=== PATIENT | female | born 1965 | race Caucasian/White ===

== ENCOUNTER 2017-07-21 01:44 | Inpatient (IN) | payer MEDICAID ==
[~2017-07-21] VITALS: Ht 154.9 cm; Wt 103.5 kg
[~2017-07-21 01:44] MED LIST: ADV500 IH; ALBU8.5H3 IH; AUD NEB
[2017-07-21] MEDS ORDERED: ALBUTEROL SULFATE 5 MG/ML 20 ML NEB SOLN [BULK] NEB ONE ×2 (02:00→02:30)
[2017-07-21] MEDS ORDERED: IPRATROPIUM BROMIDE 0.5 MG/2.5 ML NEB SOLUTION NEB ONE (02:00)
[2017-07-21] MEDS ORDERED: EPINEPHrine 1:1,000 [1 MG/ML] AMP SQ ONE (02:30)
[2017-07-21] MEDS ORDERED: DEXAMETHASONE SOD PHOS 4 MG/ML 5 ML VIAL IVP ONE (02:30)
[2017-07-21 02:55] LABS: BASOPHILS % (AUTO) 0.3 % (0.0-2.0); EOSINOPHILS % (AUTO) 7.5 % (1.0-6.0); HEMOGLOBIN 12.7 g/dL (12.0-16.0); LYMPHOCYTES # (AUTO) 3.9 K/uL (1.0-4.8); LYMPHOCYTES % (AUTO) 32.5 % (22.0-44.0); MEAN CORPUSCULAR HEMOGLOBIN 28.7 pg (26.0-34.0); MEAN CORPUSCULAR HGB CONC 33.5 G/dL (31.0-37.0); MEAN CORPUSCULAR VOLUME 86 fL (80-100); MONOCYTES # (AUTO) 0.9 K/uL (0.1-1.0); MONOCYTES % (AUTO) 7.4 % (2.0-9.0); NEUTROPHILS # (AUTO) 6.3 K/uL (1.8-7.7); NEUTROPHILS % (AUTO) 52.3 % (40.0-70.0); PLATELET COUNT (AUTO) 275 K/uL (150-450); RED BLOOD CELL COUNT(AUTO) 4.43 MIL/uL (4.00-5.20); RED CELL DISTRIBUTION WIDTH 13.8 % (11.5-14.5)
[2017-07-21 03:03] LABS: ANION GAP 10 mmol/L (8-16); CALCIUM, TOTAL 8.9 mg/dL (8.8-10.5); CARBON DIOXIDE 27 mmol/L (22-29); CHLORIDE 106 mmol/L (98-107); CREATININE 0.55 mg/dL (0.60-1.30); GLOMERULAR FILTR. RATE CALC > 60 mL/min (>60); GLUCOSE,RANDOM 109 mg/dL (70-110); POTASSIUM 3.5 mmol/L (3.5-5.1); SODIUM SERUM 143 mmol/L (136-145); UREA NITROGEN, BLOOD 8 mg/dL (7-18)
[2017-07-21 03:09] LABS: ALANINE AMINOTRANSFERASE 24 U/L (12-78); ALBUMIN 3.5 g/dL (3.4-5.0); ALKALINE PHOSPHATASE 100 U/L (46-116); ASPARTATE AMINOTRANSFERASE 16 U/L (15-37); BILIRUBIN,TOTAL 0.7 mg/dL (0.1-1.0); TOTAL PROTEIN, SERUM 6.8 g/dL (6.4-8.2)
[2017-07-21] MEDS ORDERED: ACETAMINOPHEN 500 MG TABLET PO ONE (03:30)
[2017-07-21] MEDS ORDERED: ACETAMINOPHEN 325 MG TABLET PO PRN (04:45)
[2017-07-21] MEDS ORDERED: ONDANSETRON HCL 4 MG/2 ML VIAL IVP PRN ×2 (04:45→06:45)
[2017-07-21] MEDS ORDERED: 0.9% SODIUM CHLORIDE 10 ML SYRINGE IVP PRN (04:45)
[2017-07-21 06:11] VITALS: BP 122/69
[2017-07-21] MEDS ORDERED: MAGNESIUM HYDROXIDE SUSPENSION 30 ML UDCUP PO PRN (06:45)
[2017-07-21] MEDS ORDERED: OxyCODONE HCL/ACETAMINOPHEN 5-325 MG TABLET PO PRN (06:45)
[2017-07-21] MEDS ORDERED: BISACODYL 10 MG RECTAL RECTAL SUPPOSITORY PR PRN (06:45)
[2017-07-21] MEDS ORDERED: GuaiFENesin/D-METHORPHAN/PHENYLEPH 5 ML LIQUID ORAL.SYG PO PRN (06:45)
[2017-07-21] MEDS ORDERED: ZOLPIDEM TARTRATE 5 MG TABLET PO PRN (06:45)
[2017-07-21] MEDS ORDERED: ALBUTEROL SULFATE 2.5 MG/0.5 ML NEB SOLUTION NEB SCH (07:00)
[2017-07-21] MEDS ORDERED: IPRATROPIUM BROMIDE 0.5 MG/2.5 ML NEB SOLUTION NEB SCH (07:00)
[2017-07-21 07:44] VITALS: BP 97/59
[2017-07-21] MEDS ORDERED: OXYGEN THERAPY IH SCH (08:00)
[2017-07-21] MEDS: PANTOPRAZOLE SODIUM 40 MG DR TABLET PO SCH (08:19)
[2017-07-21] MEDS: HEPARIN SODIUM,PORCINE 5,000 UNITS/ML VIAL SQ SCH ×2 (08:19→20:22)
[2017-07-21] MEDS ORDERED: FLUTICASONE/VILANTEROL 200-25 MCG/INH INHALER [14] IH SCH (09:00)
[2017-07-21 11:30] VITALS: BP 109/59
[2017-07-21] MEDS: MethylPREDNISolone SOD SUCC 125 MG/2 ML VIAL IVP SCH ×2 (13:07→17:55)
[2017-07-21] MEDS: ACETAMINOPHEN 325 MG TABLET PO PRN ×2 (13:13→20:22)
[2017-07-21] MEDS: IPRATROPIUM BROMIDE 0.5 MG/2.5 ML NEB SOLUTION NEB SCH ×3 (14:39→23:00)
[2017-07-21] MEDS: ALBUTEROL SULFATE 2.5 MG/0.5 ML NEB SOLUTION NEB SCH ×3 (14:39→23:00)
[2017-07-21] MEDS ORDERED: DEXTROSE 50%-WATER 25 GM/50 ML SYRINGE IVP PRN (14:45)
[2017-07-21 15:29] VITALS: BP 143/70
[2017-07-21 17:32] LABS: GLUCOMETER DEV NAME(LOC) 6N 1E; GLUCOSE,POINT OF CARE 138 MG/DL (70-110)
[2017-07-21 19:23] VITALS: BP 123/66
[2017-07-21] MEDS: INSULIN ASPART 100 UNITS/ML SQ PRN (20:22)
[2017-07-22] MEDS: MethylPREDNISolone SOD SUCC 125 MG/2 ML VIAL IVP SCH ×3 (00:09→15:50)
[2017-07-22] MEDS: ACETAMINOPHEN 325 MG TABLET PO PRN ×3 (00:10→17:45)
[2017-07-22 00:30] VITALS: BP 118/62
[2017-07-22] MEDS: IPRATROPIUM BROMIDE 0.5 MG/2.5 ML NEB SOLUTION NEB SCH ×3 (03:01→10:35)
[2017-07-22] MEDS: ALBUTEROL SULFATE 2.5 MG/0.5 ML NEB SOLUTION NEB SCH ×3 (03:01→10:35)
[2017-07-22 05:10] VITALS: BP 111/66
[2017-07-22 06:14] LABS: BASOPHILS % (AUTO) 0.2 % (0.0-2.0); EOSINOPHILS % (AUTO) 0 % (1.0-6.0); HEMATOCRIT 40.9 % (36-46); HEMOGLOBIN 13.7 g/dL (12.0-16.0); LYMPHOCYTES # (AUTO) 1.4 K/uL (1.0-4.8); LYMPHOCYTES % (AUTO) 7.5 % (22.0-44.0); MEAN CORPUSCULAR HEMOGLOBIN 29.1 pg (26.0-34.0); MEAN CORPUSCULAR HGB CONC 33.6 G/dL (31.0-37.0); MEAN CORPUSCULAR VOLUME 87 fL (80-100); MONOCYTES # (AUTO) 0.3 K/uL (0.1-1.0); MONOCYTES % (AUTO) 1.5 % (2.0-9.0); NEUTROPHILS # (AUTO) 16.4 K/uL (1.8-7.7); PLATELET COUNT (AUTO) 322 K/uL (150-450); RED BLOOD CELL COUNT(AUTO) 4.73 MIL/uL (4.00-5.20); RED CELL DISTRIBUTION WIDTH 13.9 % (11.5-14.5)
[2017-07-22] MEDS: INSULIN ASPART 100 UNITS/ML SQ PRN ×2 (06:14→20:48)
[2017-07-22 06:30] LABS: ALANINE AMINOTRANSFERASE 20 U/L (12-78); ALBUMIN 3.5 g/dL (3.4-5.0); ALKALINE PHOSPHATASE 103 U/L (46-116); ANION GAP 9 mmol/L (8-16); ASPARTATE AMINOTRANSFERASE 11 U/L (15-37); BILIRUBIN,TOTAL 0.4 mg/dL (0.1-1.0); CALCIUM, TOTAL 9.3 mg/dL (8.8-10.5); CARBON DIOXIDE 26 mmol/L (22-29); CHLORIDE 106 mmol/L (98-107); CREATININE 0.65 mg/dL (0.60-1.30); GLOMERULAR FILTR. RATE CALC > 60 mL/min (>60); GLUCOSE,RANDOM 168 mg/dL (70-110); PHOSPHORUS 3.5 mg/dL (2.5-4.9); SODIUM SERUM 141 mmol/L (136-145); TOTAL PROTEIN, SERUM 7.4 g/dL (6.4-8.2); UREA NITROGEN, BLOOD 10 mg/dL (7-18)
[2017-07-22] MEDS: BENZOCAINE/MENTHOL LOZENGE [8 LOZENGES/PACKET] PO PRN ×2 (06:32→17:45)
[2017-07-22 06:33] LABS: GLUCOMETER DEV NAME(LOC) 6N 2D; GLUCOSE,POINT OF CARE 257 MG/DL (70-110)
[2017-07-22 06:59] LABS: NEUTROPHILS % (AUTO) 90.8 % (40.0-70.0)
[2017-07-22 07:04] LABS: HEMOGLOBIN A1C 6.1 % (4.5-6.2)
[2017-07-22 08:07] LABS: GLUCOMETER DEV NAME(LOC) 6N 2D; GLUCOSE,POINT OF CARE 163 MG/DL (70-110)
[2017-07-22 08:12] VITALS: BP 101/43
[2017-07-22 08:24] VITALS: BP 126/68
[2017-07-22] MEDS: PANTOPRAZOLE SODIUM 40 MG DR TABLET PO SCH (08:26)
[2017-07-22] MEDS: HEPARIN SODIUM,PORCINE 5,000 UNITS/ML VIAL SQ SCH ×2 (08:27→20:39)
[2017-07-22 11:24] VITALS: BP 120/53
[2017-07-22 12:12] LABS: GLUCOMETER DEV NAME(LOC) 6N 2D; GLUCOSE,POINT OF CARE 150 MG/DL (70-110)
[2017-07-22 14:18] LABS: GLUCOMETER DEV NAME(LOC) 6N 1E; GLUCOSE,POINT OF CARE 163 MG/DL (70-110)
[2017-07-22 18:38] LABS: GLUCOMETER DEV NAME(LOC) 6N 2D; GLUCOSE,POINT OF CARE 108 MG/DL (70-110)
[2017-07-22] MEDS: IPRATROPIUM BROMIDE 0.5 MG/2.5 ML NEB SOLUTION NEB PRN (19:03)
[2017-07-22] MEDS: ALBUTEROL SULFATE 2.5 MG/0.5 ML NEB SOLUTION NEB PRN (19:03)
[2017-07-22 20:00] VITALS: BP 118/83
[2017-07-22 22:17] LABS: GLUCOMETER DEV NAME(LOC) 6N 1E; GLUCOSE,POINT OF CARE 186 MG/DL (70-110)
[2017-07-23] VITALS: BP 122/74
[2017-07-23] MEDS: MethylPREDNISolone SOD SUCC 125 MG/2 ML VIAL IVP SCH ×2 (00:37→07:49)
[2017-07-23] MEDS: BENZOCAINE/MENTHOL LOZENGE [8 LOZENGES/PACKET] PO PRN ×2 (00:45→07:50)
[2017-07-23 04:00] VITALS: BP 112/62
[2017-07-23] MEDS: IPRATROPIUM BROMIDE 0.5 MG/2.5 ML NEB SOLUTION NEB PRN ×2 (05:16→12:42)
[2017-07-23] MEDS: ALBUTEROL SULFATE 2.5 MG/0.5 ML NEB SOLUTION NEB PRN ×2 (05:16→12:42)
[2017-07-23] MEDS: INSULIN ASPART 100 UNITS/ML SQ PRN (06:36)
[2017-07-23] MEDS: ACETAMINOPHEN 325 MG TABLET PO PRN (07:51)
[2017-07-23] MEDS: PANTOPRAZOLE SODIUM 40 MG DR TABLET PO SCH (07:57)
[2017-07-23] MEDS: HEPARIN SODIUM,PORCINE 5,000 UNITS/ML VIAL SQ SCH (07:57)
[2017-07-23 08:08] VITALS: BP 122/78
[2017-07-23] MEDS ORDERED: PRED20 PO (10:02)
[2017-07-23] MEDS ORDERED: ALBU2.5V2 NEB (10:04)
[2017-07-23 11:07] LABS: GLUCOMETER DEV NAME(LOC) 6N 1E; GLUCOSE,POINT OF CARE 137 MG/DL (70-110)
[2017-07-23 11:32] LABS: GLUCOMETER DEV NAME(LOC) 6N 2D; GLUCOSE,POINT OF CARE 158 MG/DL (70-110)
[2017-07-23 12:28] VITALS: BP 116/70
== END 2017-07-23 13:15 | disposition home or self-care (01) | DRG 141 ==
LOC: EMS 01:45 → 6N 04:52
PROVIDERS: ADMIT Internal Medicine; ATTEND Internal Medicine
DX: J45.902 Unspecified asthma with status asthmaticus (principal); E44.0 Moderate protein-calorie malnutrition; Z68.41 Body mass index [BMI] 40.0-44.9, adult; E66.01 Morbid (severe) obesity due to excess calories; F41.9 Anxiety disorder, unspecified; G47.33 Obstructive sleep apnea (adult) (pediatric); Z79.899 Other long term (current) drug therapy; Z87.01 Personal history of pneumonia (recurrent); Z88.0 Allergy status to penicillin
CPT/HCPCS: 82962; 83036; 83735; 84100; 94640; 94644; 96374; 99285; J0171; J1100; J1644; J2930

== ENCOUNTER 2017-09-29 13:24 | Emergency (ER) | payer MEDICAID ==
[~2017-09-29] VITALS: Ht 154.9 cm; Wt 101.4 kg
[~2017-09-29 13:24] MED LIST changes: +ALBU2.5V2 NEB; +PRED20 PO
[2017-09-29] MEDS ORDERED: ALBUTEROL SULFATE 5 MG/ML 20 ML NEB SOLN [BULK] NEB ONE (13:45)
[2017-09-29] MEDS ORDERED: MethylPREDNISolone SOD SUCC 125 MG/2 ML VIAL IVP ONE (13:45)
[2017-09-29] MEDS ORDERED: IPRATROPIUM BROMIDE 0.5 MG/2.5 ML NEB SOLUTION NEB ONE (13:45)
[2017-09-29] MEDS ORDERED: 0.9% SODIUM CHLORIDE 5 ML NEB SOLUTION NEB ONE (13:54)
[2017-09-29 14:02] LABS: BASOPHILS % (AUTO) 0.9 % (0.0-2.0); EOSINOPHILS % (AUTO) 0.3 % (1.0-6.0); HEMATOCRIT 41.1 % (36-46); HEMOGLOBIN 14.3 g/dL (12.0-16.0); LYMPHOCYTES # (AUTO) 1.2 K/uL (1.0-4.8); LYMPHOCYTES % (AUTO) 12.1 % (22.0-44.0); MEAN CORPUSCULAR HEMOGLOBIN 29.7 pg (26.0-34.0); MEAN CORPUSCULAR HGB CONC 34.7 G/dL (31.0-37.0); MEAN CORPUSCULAR VOLUME 86 fL (80-100); MONOCYTES # (AUTO) 0.3 K/uL (0.1-1.0); MONOCYTES % (AUTO) 3.3 % (2.0-9.0); NEUTROPHILS # (AUTO) 8.2 K/uL (1.8-7.7); NEUTROPHILS % (AUTO) 83.4 % (40.0-70.0); PLATELET COUNT (AUTO) 341 K/uL (150-450); RED CELL DISTRIBUTION WIDTH 13.6 % (11.5-14.5)
[2017-09-29 14:21] LABS: ANION GAP 13 mmol/L (8-16); CALCIUM, TOTAL 8.9 mg/dL (8.8-10.5); CARBON DIOXIDE 23 mmol/L (22-29); CHLORIDE 104 mmol/L (98-107); GLOMERULAR FILTR. RATE CALC > 60 mL/min (>60); GLUCOSE,RANDOM 193 mg/dL (70-110); POTASSIUM 3.9 mmol/L (3.5-5.1); SODIUM SERUM 140 mmol/L (136-145); UREA NITROGEN, BLOOD 9 mg/dL (7-18)
[2017-09-29 14:22] LABS: ALANINE AMINOTRANSFERASE 30 U/L (12-78); ALBUMIN 3.9 g/dL (3.4-5.0); ALKALINE PHOSPHATASE 125 U/L (46-116); ASPARTATE AMINOTRANSFERASE 15 U/L (15-37); BILIRUBIN,TOTAL 0.5 mg/dL (0.1-1.0); TOTAL PROTEIN, SERUM 8.2 g/dL (6.4-8.2)
[2017-09-29 14:37] LABS: B-TYPE NATRIURETIC PEPTIDE 33 pg/mL (0-100)
[2017-09-29] MEDS: ONDANSETRON HCL 4 MG/2 ML VIAL IVP ONE ×2 (15:08→15:19)
[2017-09-29] MEDS ORDERED: SODIUM CHLORIDE 0.9% 1,000 ML IV ONE (15:15)
[2017-09-29] MEDS ORDERED: KETOROLAC TROMETHAMINE 30 MG/ML VIAL IVP ONE (15:15)
[2017-09-29] MEDS ORDERED: ACETAMINOPHEN 500 MG TABLET PO ONE (15:15)
[2017-09-29 18:13] LABS: GLUCOSE,POINT OF CARE 155 MG/DL (70-110)
[2017-09-29 18:44] VITALS: BP 139/60
== END 2017-09-29 19:20 | disposition home or self-care (01) ==
LOC: EMS 13:26
DX: J45.901 Unspecified asthma with (acute) exacerbation (principal); J81.1 Chronic pulmonary edema; Z88.0 Allergy status to penicillin
CPT/HCPCS: 71045; 80053; 82962; 83880; 84484; 85025; 87040; 93005; 94644; 96374; 99291; J1885; J2930; J7030; J7611; J2405

== ENCOUNTER 2018-01-22 09:56 | Emergency (ER) | payer MEDICAID ==
[~2018-01-22] VITALS: Ht 154.9 cm; Wt 90.9 kg
[2018-01-22] MEDS ORDERED: PredniSONE 20 MG TABLET PO ONE (10:30)
[2018-01-22] MEDS ORDERED: ALBUTEROL SULFATE 5 MG/ML 20 ML NEB SOLN [BULK] NEB ONE (10:30)
[2018-01-22] MEDS ORDERED: IPRATROPIUM BROMIDE 0.5 MG/2.5 ML NEB SOLUTION NEB ONE (10:30)
[2018-01-22] MEDS ORDERED: 0.9% SODIUM CHLORIDE 5 ML NEB SOLUTION NEB ONE (10:57)
[2018-01-22] MEDS ORDERED: ACETAMINOPHEN 500 MG TABLET PO ONE (11:45)
[2018-01-22] MEDS ORDERED: ALBUTEROL SULFATE HFA 90 MCG/PUFF 8 GM INHALER IH ONE (12:30)
[2018-01-22 12:55] VITALS: BP 114/75
== END 2018-01-22 12:57 | disposition home or self-care (01) ==
LOC: EMS 09:57
DX: J45.909 Unspecified asthma, uncomplicated (principal); Z79.899 Other long term (current) drug therapy; Z88.0 Allergy status to penicillin
CPT/HCPCS: 71045; 94644; 99285; J7512; J7611; J3535

== ENCOUNTER 2018-02-17 21:45 | Emergency (ER) | payer MEDICAID ==
[~2018-02-17] VITALS: Ht 154.9 cm; Wt 101.4 kg
[~2018-02-17 21:45] MED LIST changes: -PRED20 PO
[2018-02-17] MEDS ORDERED: ALBU8.5H8 IH (22:11)
[2018-02-17 22:49] VITALS: BP 127/70
== END 2018-02-17 22:50 | disposition home or self-care (01) ==
LOC: EMS 21:47
DX: L02.01 Cutaneous abscess of face (principal); J45.909 Unspecified asthma, uncomplicated; Z88.0 Allergy status to penicillin; Z79.899 Other long term (current) drug therapy
CPT/HCPCS: 99283

== ENCOUNTER 2019-01-13 11:38 | Emergency (ER) | payer MEDICAID ==
[~2019-01-13] VITALS: Ht 154.9 cm; Wt 102.3 kg
[~2019-01-13 11:38] MED LIST changes: -ADV500 IH; -ALBU2.5V2 NEB; -ALBU8.5H3 IH; +ALBU8.5H8 IH
[2019-01-13] MEDS ORDERED: LIDOCAINE 1% 10 ML VIAL INJ ONE (13:30)
[2019-01-13] MEDS ORDERED: POVIDONE-IODINE 10% 15 ML SOLUTION UD TP ONE (13:30)
[2019-01-13] MEDS ORDERED: HYDROCODONE/ACETAMINOPHEN 5-325 MG TABLET PO ONE (13:30)
[2019-01-13] MEDS ORDERED: ACETAMINOPHEN 500 MG TABLET ONE (14:45)
[2019-01-13] MEDS ORDERED: ACETAMINOPHEN 500 MG TABLET PO ONE (15:00)
[2019-01-13 15:01] VITALS: BP 141/93
== END 2019-01-13 15:22 | disposition home or self-care (01) ==
LOC: EMS 11:39
DX: L02.211 Cutaneous abscess of abdominal wall (principal); J45.909 Unspecified asthma, uncomplicated; Z88.0 Allergy status to penicillin
CPT/HCPCS: 10060; 99283; J3490

== ENCOUNTER 2019-01-15 10:40 | Emergency (ER) | payer MEDICAID ==
[~2019-01-15] VITALS: Ht 154.9 cm; Wt 100.0 kg
[2019-01-15 11:48] VITALS: BP 123/68
== END 2019-01-15 11:48 | disposition home or self-care (01) ==
LOC: EMS 10:42
DX: Z48.01 Encounter for change or removal of surgical wound dressing (principal); J45.909 Unspecified asthma, uncomplicated; Z79.899 Other long term (current) drug therapy; Z88.0 Allergy status to penicillin

== ENCOUNTER 2019-04-10 03:20 | Emergency (ER) | payer MEDICAID ==
[~2019-04-10] VITALS: Ht 154.9 cm; Wt 99.5 kg
[2019-04-10] MEDS ORDERED: ADV100 IH (03:23)
[2019-04-10] MEDS ORDERED: IPRATROPIUM BROMIDE 0.5 MG/2.5 ML NEB SOLUTION NEB ONE ×3 (03:30→04:15)
[2019-04-10] MEDS ORDERED: ALBUTEROL SULFATE 2.5 MG/0.5 ML NEB SOLUTION NEB ONE (03:30)
[2019-04-10] MEDS ORDERED: MethylPREDNISolone SOD SUCC 125 MG/2 ML VIAL IVP ONE (04:00)
[2019-04-10] MEDS ORDERED: ALBUTEROL SULFATE 5 MG/ML 20 ML NEB SOLN [BULK] NEB ONE ×2 (04:00→04:15)
[2019-04-10] MEDS ORDERED: MAGNESIUM SULFATE 2 GM/WATER 50 ML IV ONE (04:00)
[2019-04-10] MEDS ORDERED: 0.9% SODIUM CHLORIDE 15 ML NEB SOLUTION NEB ONE (04:17)
[2019-04-10 06:00] VITALS: BP 130/73
== END 2019-04-10 06:52 | disposition home or self-care (01) ==
LOC: EMS 03:23
DX: J45.901 Unspecified asthma with (acute) exacerbation (principal); Z79.899 Other long term (current) drug therapy; Z98.890 Other specified postprocedural states
CPT/HCPCS: 71046; 94640; 96365; 96366; 96375; 99284; J2930; J3475; 94060; 94644

== ENCOUNTER 2019-05-06 13:57 | Emergency (ER) | payer MEDICAID ==
[~2019-05-06] VITALS: Ht 162.6 cm; Wt 109.1 kg
[~2019-05-06 13:57] MED LIST changes: +ADV100 IH
[2019-05-06] MEDS ORDERED: ALBUTEROL SULFATE 2.5 MG/0.5 ML NEB SOLUTION NEB ONE (14:15)
[2019-05-06] MEDS ORDERED: IPRATROPIUM BROMIDE 0.5 MG/2.5 ML NEB SOLUTION NEB ONE ×2 (14:15→16:00)
[2019-05-06 14:27] LABS: GLUCOSE,POINT OF CARE 88 MG/DL (70-110)
[2019-05-06] MEDS ORDERED: PredniSONE 20 MG TABLET PO ONE (16:00)
[2019-05-06] MEDS ORDERED: ALBUTEROL SULFATE 5 MG/ML 20 ML NEB SOLN [BULK] NEB ONE (16:00)
[2019-05-06 18:43] VITALS: BP 142/74
== END 2019-05-06 18:49 | disposition home or self-care (01) ==
LOC: EMS 13:59
DX: J45.909 Unspecified asthma, uncomplicated (principal); Z79.899 Other long term (current) drug therapy; Z88.0 Allergy status to penicillin
CPT/HCPCS: 71046; 82962; 94640; 99284; J7512; 94060

== ENCOUNTER 2020-12-02 17:58 | Emergency (ER) | payer MEDICAID ==
[~2020-12-02] VITALS: Ht 154.9 cm; Wt 81.8 kg
[~2020-12-02 17:58] MED LIST changes: -ADV100 IH; +FLUT1DIS4 IH
[2020-12-02] MEDS ORDERED: IBUPROFEN 600 MG TABLET PO ONE (19:30)
[2020-12-02 21:23] VITALS: BP 138/72
== END 2020-12-02 21:34 | disposition home or self-care (01) ==
LOC: EMS 17:58
DX: M75.31 Calcific tendinitis of right shoulder (principal); J45.909 Unspecified asthma, uncomplicated
CPT/HCPCS: 99283

== ENCOUNTER 2021-07-02 08:12 | Inpatient (IN) | payer MEDICAID ==
[~2021-07-02] VITALS: Ht 154.9 cm; Wt 101.8 kg
[2021-07-02] MEDS ORDERED: ALBUTEROL SULFATE 5 MG/ML 20 ML NEB SOLN [BULK] NEB ONE (08:30)
[2021-07-02] MEDS ORDERED: PredniSONE 20 MG TABLET PO ONE (08:30)
[2021-07-02] MEDS ORDERED: IPRATROPIUM BROMIDE 0.5 MG/2.5 ML NEB SOLUTION NEB ONE (08:30)
[2021-07-02 08:35] LABS: COVID AG,FIA SOURCE NASOPHARYNGEAL
[2021-07-02 10:36] LABS: BASOPHILS % (AUTO) 0.2 % (0.0-2.0); EOSINOPHILS % (AUTO) 1.3 % (1.0-6.0); HEMATOCRIT 39.6 % (36-46); HEMOGLOBIN 13.6 g/dL (12.0-16.0); LYMPHOCYTES % (AUTO) 10.1 % (22.0-44.0); MEAN CORPUSCULAR HEMOGLOBIN 29.4 pg (26.0-34.0); MEAN CORPUSCULAR HGB CONC 34.3 G/dL (31.0-37.0); MEAN CORPUSCULAR VOLUME 86 fL (80-100); MONOCYTES # (AUTO) 0.4 K/uL (0.1-1.0); MONOCYTES % (AUTO) 4.1 % (2.0-9.0); NEUTROPHILS # (AUTO) 8.3 K/uL (1.8-7.7); NEUTROPHILS % (AUTO) 84.3 % (40.0-70.0); PLATELET COUNT (AUTO) 289 K/uL (150-450); RED BLOOD CELL COUNT(AUTO) 4.62 MIL/uL (4.00-5.20); RED CELL DISTRIBUTION WIDTH 13.7 % (11.5-14.5)
[2021-07-02 10:44] LABS: ANION GAP 15 mmol/L (8-16); CALCIUM, TOTAL 8.9 mg/dL (8.8-10.5); CARBON DIOXIDE 23 mmol/L (22-29); CHLORIDE 102 mmol/L (98-107); CREATININE 0.83 mg/dL (0.60-1.30); GLOMERULAR FILTR. RATE CALC > 60 mL/min (>60); GLUCOSE,RANDOM 182 mg/dL (70-110); SODIUM SERUM 140 mmol/L (136-145); UREA NITROGEN, BLOOD 7 mg/dL (7-18)
[2021-07-02] MEDS ORDERED: ACETAMINOPHEN 325 MG TABLET PO PRN (10:45)
[2021-07-02] MEDS ORDERED: ONDANSETRON HCL 4 MG/2 ML VIAL IVP PRN ×2 (10:45→13:45)
[2021-07-02 10:46] LABS: POTASSIUM 2.9 mmol/L (3.5-5.1)
[2021-07-02] MEDS ORDERED: ALBUTEROL SULFATE 2.5 MG/0.5 ML NEB SOLUTION NEB SCH (11:00)
[2021-07-02] MEDS ORDERED: IPRATROPIUM BROMIDE 0.5 MG/2.5 ML NEB SOLUTION NEB SCH (11:00)
[2021-07-02] MEDS ORDERED: POTASSIUM CHLORIDE 20 MEQ ER TABLET PO ONE (11:00)
[2021-07-02 12:16] VITALS: BP 116/64
[2021-07-02] MEDS ORDERED: IPRATROPIUM BROMIDE 0.5 MG/2.5 ML NEB SOLUTION NEB PRN (13:45)
[2021-07-02] MEDS ORDERED: HYDROCODONE/ACETAMINOPHEN 5-325 MG TABLET PO PRN (13:45)
[2021-07-02] MEDS ORDERED: ALBUTEROL SULFATE 2.5 MG/0.5 ML NEB SOLUTION NEB PRN (13:45)
[2021-07-02] MEDS ORDERED: POTASSIUM CHL 10 MEQ/WATER 50 ML IV PRN (13:45)
[2021-07-02] MEDS ORDERED: BISACODYL 10 MG RECTAL RECTAL SUPPOSITORY PR PRN (13:45)
[2021-07-02] MEDS ORDERED: POTASSIUM CHLORIDE 20 MEQ ER TABLET PO PRN (13:45)
[2021-07-02] MEDS ORDERED: MORPHINE SULFATE 2 MG/ML SYRINGE IVP PRN (13:45)
[2021-07-02] MEDS ORDERED: ZOLPIDEM TARTRATE 5 MG TABLET PO PRN (13:45)
[2021-07-02] MEDS ORDERED: MAGNESIUM HYDROXIDE SUSPENSION 30 ML UDCUP PO PRN (13:45)
[2021-07-02] MEDS: ALBUTEROL SULFATE 2.5 MG/0.5 ML NEB SOLUTION NEB SCH ×2 (14:31→19:17)
[2021-07-02] MEDS: IPRATROPIUM BROMIDE 0.5 MG/2.5 ML NEB SOLUTION NEB SCH ×2 (14:31→19:17)
[2021-07-02 14:51] LABS: GLUCOMETER DEV NAME(LOC) 6N.2; GLUCOSE,POINT OF CARE 183 MG/DL (70-110)
[2021-07-02] MEDS ORDERED: INFLUENZA VIRUS VACCINE QVS 2021-22 (6MO+)/PF 60 MCG/0.5 ML SYRINGE IM. ONE (15:00)
[2021-07-02] MEDS: ACETAMINOPHEN 325 MG TABLET PO PRN ×2 (15:39→22:32)
[2021-07-02] MEDS: BENZONATATE 100 MG CAPSULE PO SCH ×2 (15:39→21:00)
[2021-07-02] MEDS: HEPARIN SODIUM,PORCINE 5,000 UNITS/ML VIAL SQ SCH ×2 (15:40→21:49)
[2021-07-02 16:12] VITALS: BP 111/78
[2021-07-02 17:22] LABS: GLUCOMETER DEV NAME(LOC) 4E.2; GLUCOSE,POINT OF CARE 182 MG/DL (70-110)
[2021-07-02] MEDS: MethylPREDNISolone SOD SUCC 125 MG/2 ML VIAL IVP SCH (18:00)
[2021-07-02 20:06] VITALS: BP 136/72
[2021-07-02] MEDS: DOCUSATE SODIUM 100 MG CAPSULE PO SCH (21:38)
[2021-07-02] MEDS: GuaiFENesin SR 600 MG ER TABLET PO SCH (21:38)
[2021-07-02] MEDS: FLUTICASONE/VILANTEROL 200-25 MCG/INH INHALER [14] IH SCH (21:48)
[2021-07-03] MEDS: MethylPREDNISolone SOD SUCC 125 MG/2 ML VIAL IVP SCH ×4 (00:22→17:51)
[2021-07-03] MEDS: IPRATROPIUM BROMIDE 0.5 MG/2.5 ML NEB SOLUTION NEB SCH ×4 (02:52→20:00)
[2021-07-03] MEDS: ALBUTEROL SULFATE 2.5 MG/0.5 ML NEB SOLUTION NEB SCH ×4 (02:53→20:00)
[2021-07-03] MEDS: ACETAMINOPHEN 325 MG TABLET PO PRN (06:26)
[2021-07-03 06:50] LABS: BASOPHILS % (AUTO) 0.3 % (0.0-2.0); EOSINOPHILS % (AUTO) 0.1 % (1.0-6.0); HEMATOCRIT 38.2 % (36-46); HEMOGLOBIN 13.5 g/dL (12.0-16.0); LYMPHOCYTES # (AUTO) 1.1 K/uL (1.0-4.8); LYMPHOCYTES % (AUTO) 8.1 % (22.0-44.0); MEAN CORPUSCULAR HEMOGLOBIN 29.9 pg (26.0-34.0); MEAN CORPUSCULAR HGB CONC 35.3 G/dL (31.0-37.0); MEAN CORPUSCULAR VOLUME 85 fL (80-100); MONOCYTES # (AUTO) 0.1 K/uL (0.1-1.0); MONOCYTES % (AUTO) 0.6 % (2.0-9.0); NEUTROPHILS # (AUTO) 12.1 K/uL (1.8-7.7); PLATELET COUNT (AUTO) 304 K/uL (150-450); RED BLOOD CELL COUNT(AUTO) 4.52 MIL/uL (4.00-5.20); RED CELL DISTRIBUTION WIDTH 13.7 % (11.5-14.5)
[2021-07-03 06:59] LABS: ANION GAP 8 mmol/L (8-16); CALCIUM, TOTAL 9.3 mg/dL (8.8-10.5); CARBON DIOXIDE 28 mmol/L (22-29); CHLORIDE 105 mmol/L (98-107); GLOMERULAR FILTR. RATE CALC > 60 mL/min (>60); GLUCOSE,RANDOM 172 mg/dL (70-110); POTASSIUM 4.3 mmol/L (3.5-5.1); SODIUM SERUM 141 mmol/L (136-145); UREA NITROGEN, BLOOD 9 mg/dL (7-18)
[2021-07-03 07:12] LABS: NEUTROPHILS % (AUTO) 90.9 % (40.0-70.0)
[2021-07-03] MEDS: HEPARIN SODIUM,PORCINE 5,000 UNITS/ML VIAL SQ SCH ×3 (08:00→21:07)
[2021-07-03 08:02] VITALS: BP 101/60
[2021-07-03] MEDS: BENZONATATE 100 MG CAPSULE PO SCH ×3 (08:25→21:00)
[2021-07-03] MEDS: PANTOPRAZOLE SODIUM 40 MG DR TABLET PO SCH (08:49)
[2021-07-03] MEDS: DOCUSATE SODIUM 100 MG CAPSULE PO SCH ×2 (08:50→21:15)
[2021-07-03] MEDS: GuaiFENesin SR 600 MG ER TABLET PO SCH ×2 (08:50→21:15)
[2021-07-03 14:41] LABS: GLUCOMETER DEV NAME(LOC) 6N.1; GLUCOSE,POINT OF CARE 201 MG/DL (70-110)
[2021-07-03 16:30] VITALS: BP 116/60
[2021-07-03 18:21] LABS: GLUCOMETER DEV NAME(LOC) 4E.2; GLUCOSE,POINT OF CARE 199 MG/DL (70-110)
[2021-07-03 19:42] VITALS: BP 131/67
[2021-07-03] MEDS: FLUTICASONE/VILANTEROL 200-25 MCG/INH INHALER [14] IH SCH (21:08)
[2021-07-04] MEDS: MethylPREDNISolone SOD SUCC 125 MG/2 ML VIAL IVP SCH ×3 (00:05→11:54)
[2021-07-04] MEDS: BUDESONIDE 0.5 MG/2 ML NEB SOLUTION NEB SCH ×2 (01:54→08:18)
[2021-07-04] MEDS: ALBUTEROL SULFATE 2.5 MG/0.5 ML NEB SOLUTION NEB SCH ×2 (01:56→08:19)
[2021-07-04] MEDS: IPRATROPIUM BROMIDE 0.5 MG/2.5 ML NEB SOLUTION NEB SCH ×2 (01:56→08:18)
[2021-07-04] MEDS: ACETAMINOPHEN 325 MG TABLET PO PRN (03:59)
[2021-07-04 04:18] VITALS: BP 117/71
[2021-07-04 07:17] LABS: BASOPHILS % (AUTO) 0.3 % (0.0-2.0); EOSINOPHILS % (AUTO) 0.1 % (1.0-6.0); HEMATOCRIT 38.5 % (36-46); HEMOGLOBIN 13.5 g/dL (12.0-16.0); LYMPHOCYTES # (AUTO) 2.2 K/uL (1.0-4.8); LYMPHOCYTES % (AUTO) 9.9 % (22.0-44.0); MEAN CORPUSCULAR HGB CONC 35.1 G/dL (31.0-37.0); MEAN CORPUSCULAR VOLUME 85 fL (80-100); MONOCYTES # (AUTO) 1.4 K/uL (0.1-1.0); NEUTROPHILS # (AUTO) 18.8 K/uL (1.8-7.7); NEUTROPHILS % (AUTO) 83.7 % (40.0-70.0); PLATELET COUNT (AUTO) 287 K/uL (150-450); RED BLOOD CELL COUNT(AUTO) 4.51 MIL/uL (4.00-5.20)
[2021-07-04 07:22] LABS: ANION GAP 8 mmol/L (8-16); CALCIUM, TOTAL 9.2 mg/dL (8.8-10.5); CARBON DIOXIDE 27 mmol/L (22-29); CHLORIDE 105 mmol/L (98-107); CREATININE 0.71 mg/dL (0.60-1.30); GLOMERULAR FILTR. RATE CALC > 60 mL/min (>60); GLUCOSE,RANDOM 124 mg/dL (70-110); POTASSIUM 4.6 mmol/L (3.5-5.1); SODIUM SERUM 140 mmol/L (136-145); UREA NITROGEN, BLOOD 15 mg/dL (7-18)
[2021-07-04] MEDS: BENZONATATE 100 MG CAPSULE PO SCH (07:28)
[2021-07-04] MEDS: HEPARIN SODIUM,PORCINE 5,000 UNITS/ML VIAL SQ SCH (07:28)
[2021-07-04 08:00] VITALS: BP 120/81
[2021-07-04] MEDS: PANTOPRAZOLE SODIUM 40 MG DR TABLET PO SCH (08:24)
[2021-07-04] MEDS: GuaiFENesin SR 600 MG ER TABLET PO SCH (08:24)
[2021-07-04] MEDS: DOCUSATE SODIUM 100 MG CAPSULE PO SCH (08:24)
[2021-07-04 08:26] LABS: GLUCOMETER DEV NAME(LOC) 6N.1; GLUCOSE,POINT OF CARE 108 MG/DL (70-110)
[2021-07-04] MEDS ORDERED: PRED-729 PO (10:53)
[2021-07-04] MEDS ORDERED: PRED-549 PO (10:53)
[2021-07-04] MEDS ORDERED: PRED-554 PO (10:53)
== END 2021-07-04 12:30 | disposition home or self-care (01) | DRG 141 ==
LOC: EMS 08:15 → 6S 11:30
PROVIDERS: ADMIT Internal Medicine; ATTEND Internal Medicine
DX: J45.901 Unspecified asthma with (acute) exacerbation (principal); E66.2 Morbid (severe) obesity with alveolar hypoventilation; E11.9 Type 2 diabetes mellitus without complications; I10 Essential (primary) hypertension; Z20.822 Contact with and (suspected) exposure to COVID-19; E87.6 Hypokalemia; Z88.0 Allergy status to penicillin; Z87.01 Personal history of pneumonia (recurrent); Z68.41 Body mass index [BMI] 40.0-44.9, adult
CPT/HCPCS: 71045; 80048; 82962; 83036; 84132; 85025; 93005; 94640; 94644; 99285; J1644; J2930; Q9967; 36415-L1; 36415-TC; J7611; J7613

== ENCOUNTER 2023-10-24 13:47 | Emergency (ER) | payer MEDICAID, OTHER ==
[~2023-10-24] VITALS: Ht 154.9 cm; Wt 104.5 kg
[~2023-10-24 13:47] MED LIST changes: +ALBU2.5V39 NEB; -AUD NEB; +PRED-549 PO; +PRED-554 PO; +PRED-729 PO
[2023-10-24 13:56] VITALS: BP 136/84; PULSE 102; RESP 18; TEMP 98.2
[2023-10-24] MEDS ORDERED: FLUT1BLS3 IH (13:58)
[2023-10-24 14:16] LABS: GLUCOMETER DEV NAME(LOC) ERT.5; GLUCOSE,POINT OF CARE 114 MG/DL (70-110)
== END 2023-10-24 16:18 | disposition left against medical advice (07) ==
LOC: EMS 13:47
DX: H92.02 Otalgia, left ear (principal); Z79.899 Other long term (current) drug therapy; Z53.21 Procedure and treatment not carried out due to patient leaving prior to being seen by health care provider
CPT/HCPCS: 82962

== ENCOUNTER 2025-01-24 11:02 | Emergency (ER) | payer OTHER ==
[~2025-01-24] VITALS: Ht 162.6 cm; Wt 103.2 kg
[~2025-01-24 11:02] MED LIST changes: -ALBU2.5V39 NEB; +FLUT1BLS3 IH; -FLUT1DIS4 IH; -PRED-549 PO; -PRED-554 PO; -PRED-729 PO
[2025-01-24 11:16] VITALS: BP 121/58; PULSE 91; RESP 18; TEMP 97.9; O2SAT 99
[2025-01-24 11:41] LABS: GLUCOMETER DEV NAME(LOC) ER.7; GLUCOSE,POINT OF CARE 104 MG/DL (70-110)
[2025-01-24 11:49] LABS: PLATELET COUNT (AUTO) 347 K/uL (150-450); RED BLOOD CELL COUNT(AUTO) 4.92 MIL/uL (4.00-5.20); RED CELL DISTRIBUTION WIDTH 13.9 % (11.5-14.5); WHITE BLOOD COUNT (AUTO) 9.4 K/uL (4.5-11.0)
[2025-01-24 12:04] LABS: CALCIUM, TOTAL 9.0 mg/dL (8.8-10.5); CREATININE 0.56 mg/dL (0.60-1.30); GLOMERULAR FILTR. RATE CALC > 60 mL/min (>60); GLUCOSE,RANDOM 104 mg/dL (70-110); SODIUM SERUM 136 mmol/L (136-145); UREA NITROGEN, BLOOD 10 mg/dL (7-18)
[2025-01-24] MEDS ORDERED: IOHEXOL 350 MG/ML 100 ML VIAL ONE (14:17)
[2025-01-24] MEDS ORDERED: SODIUM CHLORIDE 0.9% 100 ML ONE (14:18)
[2025-01-24] MEDS ORDERED: 0.9% SODIUM CHLORIDE 10 ML SYRINGE IVP ONE (14:18)
[2025-01-24 14:31] LABS: ASPARTATE AMINOTRANSFERASE 20.0 U/L (15-37); TOTAL PROTEIN, SERUM 7.8 g/dL (6.4-8.2)
[2025-01-24] MEDS: ONDANSETRON HCL 4 MG/2 ML VIAL IVP ONE (14:53)
[2025-01-24] MEDS: SODIUM CHLORIDE 0.9% 1,000 ML IV ONE (14:53)
[2025-01-24 14:57] LABS: COVID AG,FIA SOURCE NASAL SWAB
[2025-01-24 14:59] LABS: APPEARANCE,URINE CLEAR (CLEAR); GLUCOSE, URINE (UA) NEGATIVE (NEGATIVE); LEUKOCYTE ESTERASE ,URINE NEGATIVE (NEGATIVE); NITRATE,URINE NEGATIVE (NEGATIVE); OCCULT BLOOD,URINE NEGATIVE (NEGATIVE); SPECIFIC GRAVITIY, URINE 1.003 (1.003-1.030)
[2025-01-24 15:35] LABS: INFLUENZA TYPE A NEGATIVE FOR TYPE A (NEGATIVE); INFLUENZA TYPE B NEGATIVE FOR TYPE B (NEGATIVE); SARS-COV2 (COVID) ANTIGEN,FIA Negative (Negative)
== END 2025-01-24 18:06 | disposition home or self-care (01) ==
LOC: EMS 11:08
DX: A08.4 Viral intestinal infection, unspecified (principal); R10.32 Left lower quadrant pain; E11.9 Type 2 diabetes mellitus without complications; I10 Essential (primary) hypertension; J45.909 Unspecified asthma, uncomplicated; Z88.0 Allergy status to penicillin; Z79.899 Other long term (current) drug therapy; Z20.822 Contact with and (suspected) exposure to COVID-19
CPT/HCPCS: 99285; 74177; 87426; 80048; 80076; 81003; 82962; 85025; 87804; 36415; Q9967; J7030; J7050